=== PATIENT | male | born 1940 | race Caucasian/White ===

== ENCOUNTER → 2018-08-05 | Outpatient (CLI) | payer MEDICARE ==
[2018-08-03 11:00] VITALS: BP 149/65
[~2018-08-05] MED LIST: ASPI-630 PO; BUPR150T15 PO; ENAL20TA4 PO; ESCITALOPRAM OXA5 MG PO; MELA5TAB21 PO; MIRT15TA PO
--- NOTE | 2018-08-05 16:56 | RAD ---
Lumbar spine and pelvis radiograph 08/05/2018 INDICATION: Lower back and pelvic pain after rolling out of bed. COMPARISON: None available TECHNIQUE: 3 views of the cervical spine and single view the pelvis are provided. FINDINGS: There are 5 nonrib-bearing lumbar type vertebral bodies. Vertebral body heights are maintained. There is diffuse osteopenia. There is moderate disc height loss at L5-S1. Moderate facet arthropathy is noted in the lower lumbar spine. Atherosclerotic changes of the abdominal aorta are present. Sacroiliac joints are well aligned. Sacral brittny appear intact. The pelvic ring is intact. Superior and inferior pubic symphysis appears intact. Proximal femora are intact. IMPRESSION: 1. Moderate degenerative disc disease of the lumbosacral junction. No acute fracture or malalignment of the lumbar spine. 2. No acute fracture of the pelvis. Electronically signed by: Rimma Eli MD (08/05/2018 4:52 PM) [id number]
== END | disposition home or self-care (01) ==
LOC: RAD 13:05 → EDSTATUS 09-23 11:36
PROVIDERS: ATTEND Internal Medicine
DX: M51.37 Other intervertebral disc degeneration, lumbosacral region (principal); M85.89 Other specified disorders of bone density and structure, multiple sites; I70.0 Atherosclerosis of aorta
CPT/HCPCS: 72100; 72170

== ENCOUNTER 2019-11-14 20:27 | Emergency (ER) | payer MEDICARE ==
[~2019-11-14] VITALS: Ht 177.8 cm; Wt 97.0 kg
[2019-11-14 20:34] VITALS: BP 166/85
--- NOTE | 2019-11-14 20:58 | PHYS DOC ---
Past Medical History Past Medical History: Alcoholism, Hypertension Additional Past Medical Histor: BPH, TREMORS Additional Past Surgical Histo: BACK SURGERY Smoking Status: Never Smoker Alcohol Use: Occasionally Drug Use: None Adult General Chief Complaint Chief Complaint: NOSEBLEED HPI HPI Patient is a 79 year old male who presents with nosebleed that started this morning. Patient denies being on blood thinners although he does take aspirin. The patient states his been bleeding all day so he came to the hospital. He denies any additional symptoms. Complete ROS were reviewed and found to be within normal limits, except as documented in the HPI Current Medications Current Medications Current Medications Medications (Trade) Dose Ordered Sig/Christina Start Time Stop Time Status Last Admin Dose Admin Tranexamic Acid (Cyklokapron) 1,000 mg 1X ONCE 11/14/19 21:00 11/14/19 21:02 DC Allergies Allergies Allergies Coded Allergies Type Severity Reaction Last Updated Verified No Known Drug Allergies 07/21/18 No Physical Exam Physical Exam Constitutional: Well developed, well nourished, no acute distress, non-toxic appearance. [] HENT: Normocephalic, atraumatic, bilateral external ears normal, oropharynx moist, no oral exudates, nose has blood clot sticking out of left nare. Patient has a clamp on his nose. Neurologic: Alert and oriented X 3, normal motor function, normal sensory function, no focal deficits noted. [] Psychologic: Affect normal, judgement normal, mood normal. [] Current Patient Data Vital Signs Vital Signs Date Time Temp Pulse Resp B/P (MAP) Pulse Ox O2 Delivery O2 Flow Rate FiO2 11/14/19 20:34 98.3 80 18 166/85 (112) 97 Room Air 98.3 Lab Values Laboratory Tests Test 11/14/19 20:38 White Blood Count 9.1 x10^3/uL (4.0-11.0) Red Blood Count 4.73 x10^6/uL (4.30-5.70) Hemoglobin 14.7 g/dL (13.0-17.5) Hematocrit 43.7 % (39.0-53.0) Mean Corpuscular Volume 93 fL (79-100) Mean Corpuscular Hemoglobin 31 pg (25-35) Mean Corpuscular Hemoglobin Concent 34 g/dL (31-37) Red Cell Distribution Width 13.5 % (11.5-14.5) Platelet Count 248 x10^3/uL (140-400) Neutrophils (%) (Auto) 69 % (31-73) Lymphocytes (%) (Auto) 23 % (24-48) L Monocytes (%) (Auto) 6 % (0-9) Eosinophils (%) (Auto) 1 % (0-3) Basophils (%) (Auto) 1 % (0-3) Neutrophils # (Auto) 6.3 x10^3/uL (1.8-7.7) Lymphocytes # (Auto) 2.1 x10^3/uL (1.0-4.8) Monocytes # (Auto) 0.6 x10^3/uL (0.0-1.1) Eosinophils # (Auto) 0.1 x10^3/uL (0.0-0.7) Basophils # (Auto) 0.0 x10^3/uL (0.0-0.2) Prothrombin Time 12.2 SEC (11.7-14.0) Prothrombin Time INR 0.9 (0.8-1.1) Activated Partial Thromboplast Time 45 SEC (24-38) H Sodium Level 147 mmol/L (136-145) H Potassium Level 3.6 mmol/L (3.5-5.1) Chloride Level 108 mmol/L (98-107) H Carbon Dioxide Level 27 mmol/L (21-32) Anion Gap 12 (6-14) Blood Urea Nitrogen 15 mg/dL (8-26) Creatinine 1.1 mg/dL (0.7-1.3) Estimated GFR (Cockcroft-Gault) 64.2 BUN/Creatinine Ratio 14 (6-20) Glucose Level 104 mg/dL (70-99) H Calcium Level 8.9 mg/dL (8.5-10.1) Total Bilirubin 0.3 mg/dL (0.2-1.0) Aspartate Amino Transferase (AST) 22 U/L (15-37) Alanine Aminotransferase (ALT) 33 U/L (16-63) Alkaline Phosphatase 110 U/L (46-116) Total Protein 7.3 g/dL (6.4-8.2) Albumin 3.7 g/dL (3.4-5.0) Albumin/Globulin Ratio 1.0 (1.0-1.7) Laboratory Tests 11/14/19 20:38 Laboratory Tests 11/14/19 20:38 EKG EKG [] Radiology/Procedures Radiology/Procedures Placed 2000 mg of TXA on a Rhino Rocket and put up the gentleman's nose. Placed up left nare. Bleeding controlled. Removed large blood clot. Course & Med Decision Making Course & Med Decision Making Pertinent Labs and Imaging studies reviewed. (See chart for details) We will check basic labs and then will order TXA and put on a Rhino Rocket and put up the gentleman's nose. We will have him follow-up with ENT. Richa Disclaimer Dragon Disclaimer This electronic medical record was generated, in whole or in part, using a voice recognition dictation system. Departure Departure Impression: Primary Impression: Epistaxis Disposition: HOME, SELF-CARE Condition: STABLE Referrals: ADAM ANDRADE MD (PCP) TONY HOLBROOK MD Patient Instructions: Nosebleed Additional Instructions: Thank you for visiting . We appreciate you trusting us with your care. If any additional problems come up don't hesitate to return to visit us. Please follow up with your primary care provider so they can plan additional care if needed and know about the problem that you had. If symptoms worsen come back to the Emergency Department. Any concerning symptoms that start such as chest pain, shortness of air, weakness or numbness on one side of the body, running high fevers or any other concerning symptoms return to the ER. Please do not take the Rhino Rocket out for 24 hours GABY BATES APRN Nov 14, 2019 20:58
[2019-11-14] MEDS ORDERED: TRANEXAMIC ACID 1,000 MG/10 ML VIAL. TOP ONE (21:00)
[2019-11-14 21:05] LABS: BASO % 1 % (0-3); EOS # 0.1 x10^3/uL (0.0-0.7); EOS % 1 % (0-3); HEMATOCRIT 43.7 % (39.0-53.0); HEMOGLOBIN 14.7 g/dL (13.0-17.5); LYMPH # 2.1 x10^3/uL (1.0-4.8); LYMPH % 23 % (24-48); MEAN CORPUSCULAR HEMOGLOBIN 31 pg (25-35); MEAN CORPUSCULAR HGB CONC 34 g/dL (31-37); MEAN CORPUSCULAR VOLUME 93 fL (79-100); MONO # 0.6 x10^3/uL (0.0-1.1); MONO % 6 % (0-9); NEUT # 6.3 x10^3/uL (1.8-7.7); NEUT % 69 % (31-73); PLATELET COUNT 248 x10^3/uL (140-400); RED BLOOD COUNT 4.73 x10^6/uL (4.30-5.70); RED CELL DISTRIBUTION WIDTH 13.5 % (11.5-14.5); WHITE BLOOD COUNT 9.1 x10^3/uL (4.0-11.0)
[2019-11-14 21:12] LABS: CALCIUM 8.9 mg/dL (8.5-10.1); CREATININE 1.1 mg/dL (0.7-1.3); GFR 64.2; POTASSIUM 3.6 mmol/L (3.5-5.1)
[2019-11-14 21:14] LABS: PROTHROMBIN TIME PATIENT 12.2 SEC (11.7-14.0)
[2019-11-14 21:18] LABS: ALBUMIN 3.7 g/dL (3.4-5.0); TOTAL BILIRUBIN 0.3 mg/dL (0.2-1.0); TOTAL PROTEIN 7.3 g/dL (6.4-8.2)
== END 2019-11-14 22:05 | disposition home or self-care (01) ==
LOC: ER 20:27
DX: R04.0 Epistaxis (principal); I10 Essential (primary) hypertension
CPT/HCPCS: 30901; 36415; 80053; 85025; 85610; 85730; 99284; J3490

== ENCOUNTER → 2021-09-18 | Outpatient (CLI) | payer MEDICARE ==
[~2021-09-18] MED LIST changes: +MIRT-36 PO; -MIRT15TA PO
--- NOTE | 2021-09-18 14:39 | KCIC ---
EXAM: Lumbar spine, 5 views. HISTORY: Pain. COMPARISON: None. FINDINGS: 5 views of the lumbar spine are obtained. There is lumbar scoliosis. There is 5 mm grade 1 anterolisthesis of L4 and L5. There is a severe compression fracture of L4 with near complete loss of central vertebral body height. There is disc space narrowing predominantly at the lumbosacral juncti on. There is no significant retropulsion of the cortex. There is multilevel endplate remodeling and f acet arthropathy. There is bone demineralization. IMPRESSION: 1. Severe L4 compression fracture. There is lucency traversing the vertebral body suggesting an acute or subacute etiology. Correlate for pain in this location. 2. Multilevel degenerative change, primarily at the lower lumbar levels. 3. Grade 1 anterolisthesis of L4 on L5 and lumbar scoliosis. Electronically signed by: Zulema Andres MD (09/18/2021 2:36 PM) [id number]
== END ==
LOC: KCIC 13:40
PROVIDERS: ATTEND Internal Medicine
DX: M47.26 Other spondylosis with radiculopathy, lumbar region (principal); M43.16 Spondylolisthesis, lumbar region; M48.56XA Collapsed vertebra, not elsewhere classified, lumbar region, initial encounter for fracture; M41.86 Other forms of scoliosis, lumbar region; M81.8 Other osteoporosis without current pathological fracture; M48.07 Spinal stenosis, lumbosacral region; M48.8X7 Other specified spondylopathies, lumbosacral region
CPT/HCPCS: 72110